=== PATIENT | male | born 1970 | race Caucasian/White ===

== ENCOUNTER 2022-03-12 13:55 | Emergency (ER) | payer OTHER ==
[2022-03-12 14:12] VITALS: BP 139/103; PULSE 78; RESP 16; TEMP 99; BMI 21.9
== END 2022-03-12 15:45 | disposition home or self-care (01) ==
LOC: FER 13:55
DX: S93.509A Unspecified sprain of unspecified toe(s), initial encounter (principal)
CPT/HCPCS: 73660-TC-LT-FY; 99284-25